=== PATIENT | female | born 1990 | race African-American/Black ===

== ENCOUNTER 2020-09-15 22:57 | Emergency (ER) | payer OTHER, SELFPAY ==
[2020-09-15 23:33] VITALS: BP 142/78; PULSE 108; RESP 18; TEMP 37; O2SAT 100; BMI 33.2
--- NOTE | 2020-09-16 00:05 | ED.ANIMALBIT ---
HPI - Animal Bite General Chief Complaint: Animal Bite Stated Complaint: Dog bite Time Seen by Provider: 09/16/20 00:08 Source: patient Mode of arrival: ambulatory Limitations: no limitations History of Present Illness HPI narrative: No significant past medical history presents with a dog bite to left antecubital space. Patient stated that her dogs were fighting, she did pull them apart and her poodle bit her arm. Dog did receive vaccinations a few years ago, and has no risk for rabies. Patient does not describe any other symptoms, and has full range of motion to the extremity. MD complaint: animal bite Onset (ago): hour(s) (Within the hour of arrival) Animal: dog Description of animal: household pet Mechanism: bite Pain description: dull and burning Severity scale (1-10): 6 Context: animals fighting Treatments prior to arrival: wound dressing(s) Related Data Patient tetanus UTD: No Previous Rx's Medication Instructions Recorded amoxicillin-pot clavulanate 1 tab PO Q12H 10 Days #20 tab 09/16/20 [Augmentin] fluconazole [Diflucan] 150 mg PO Q3D #2 tab 09/16/20 Allergies Allergy/AdvReac Type Severity Reaction Status Date / Time No Known Allergies Allergy Verified 09/16/20 00:04 Review of Systems Review of Systems: Constitutional: No Fever, No Chills ENT/Mouth: No Ear Pain, No Hoarseness, No sore throat Eyes: No Eye Pain, No Swelling, No Redness, No Foreign Body Cardiovascular: No Chest Pain, No SOB Respiratory: No Cough, No Dyspnea Gastrointestinal: No Nausea, No Vomiting, No Diarrhea, No abdominal Pain Genitourinary: No Dysuria, No Hematuria Musculoskeletal: positive left antecubital space pain, No Myalgias, No Joint Swelling Skin: Positive left antecubital lacerations, No rash Neuro: No Weakness, No Numbness, No Paresthesias, No Loss of Consciousness, No Dizziness, No Headache Psych: No Anxiety/Panic, No Depression Heme/Lymph: no easy bruising, no Lymphadenopathy Endocrine: No Polyuria, No Polydipsia Yes all other systems are reviewed and are negative [facility] Past Medical History Attestation statement: The following information was validated with the patient. Source: old records reviewed Social History Social History Alcohol intake: never Smoked in Last 30 Days: No Use of substances other than those prescribed or required for medical reasons: No Any prior treatment program specific to substance use: No Advance Directives: No Advance Directives Information Provided: Yes Physical Exam Vital Signs: Vital Signs: Last Vital Signs Temp 98.6 F 09/15/20 23:33 Pulse 108 H 09/15/20 23:33 Resp 18 09/15/20 23:33 BP 142/78 H 09/15/20 23:33 Pulse Ox 100 09/15/20 23:33 Body Mass Index 33.2 Appearance: Alert. Oriented X3. No acute distress. Eyes: Pupils equal, round and reactive to light. ENT: Pharynx normal. Neck: Normal inspection. Neck supple. CVS: Normal heart rate and rhythm. Pulses normal. Respiratory: No respiratory distress. Breath sounds normal. Abdomen: Soft and nontender. Skin: 3 cm laceration to the left antecubital space with bruising, Skin warm and dry. Normal skin color. Normal skin turgor. Extremities: No lower extremity edema. Strength 5/5, full range of motion, no indication of tendon injury. Neuro: No motor deficit. No sensory deficit. Course Course Course Narrative: 29-year-old female presents with laceration to the left antecubital space secondary to a dog bite. Patient has low risk for rabies, it is her own dog and dog was vaccine in 2017. Prepped and draped in sterile fashion, please refer to procedure note for full details. Laceration repaired with 3 sutures allowing for plenty of space of drainage, wound was gaping with adipose tissue protruding from the site. will give Augmentin for 10 days. Patient verbalized understanding of and agrees to plan of care discharge home. Procedures Laceration Laceration 1: Site: upper extremity Side (If applicable): left Size (cm): 3 Description: linear Depth: simple, single layer Local Anesthetic: with epi Amount of anesthesia used (mL): 10 Pre-repair: wound explored, irrigated extensively and deep structures intact Skin layer closed with: nylon Size (cm): 5-0 Number of sutures: 3 Technique: simple, interrupted MDM - Animal Bite Differential Diagnosis Differential diagnosis: Likely bite by animal Medical Records Attestation: I reviewed the patient's medical records. Discharge Plan Discharge Clinical Impression: Dog bite Qualifiers: Encounter type: initial encounter Qualified Code(s): W54.0XXA - Bitten by dog, initial encounter Patient Disposition: Home, Self-Care Instructions: Animal Bite (ED), Care For Your Stitches (ED), Laceration (ED) Additional Instructions: You were evaluated for a dog bite. Please take Augmentin as directed and complete the entire course. Please return in 10 days to have sutures removed. If you notice signs or symptoms indicating infection which include but are not limited to fevers, chills, purulent drainage from the wound site please return to the emergency department immediately for evaluation. Thank you for choosing this emergency department for evaluation. Please follow-up with primary care physician as needed. Return to the emergency department for any new, concerning, or worsening symptoms. Prescriptions: New amoxicillin-pot clavulanate [Augmentin] 875-125 mg tablet 1 tab PO Q12H 10 Days Qty: 20 RF: 0 fluconazole [Diflucan] 150 mg tablet 150 mg PO Q3D Qty: 2 RF: 0 Stand Alone Forms: Work/School Release Interventions: ED Discharge Assessment Last Done: 09/16/20 02:04 Discharge Date/Time: 09/16/20 01:49
[2020-09-16] MEDS: Amoxicillin/Potassium Clav 875 MG TABLET PO (00:52)
[2020-09-16] MEDS: Lidocaine HCl 2%/Epi 1:100,000 20 ML VIAL INFILTRATI (01:59)
== END 2020-09-16 01:49 | disposition home or self-care (01) ==
PROVIDERS: Emergency Provider Emergency Medicine Emergency Medical Services
DX: S41.112A Laceration without foreign body of left upper arm, initial encounter (principal); W54.0XXA Bitten by dog, initial encounter; Y93.89 Activity, other specified; Y92.017 Garden or yard in single-family (private) house as the place of occurrence of the external cause; Y99.9 Unspecified external cause status
CPT/HCPCS: 12002; 99284

== ENCOUNTER 2020-09-26 05:29 | Emergency (ER) | payer OTHER, SELFPAY ==
[2020-09-26 05:52] VITALS: BP 156/70; PULSE 100; RESP 17; TEMP 36.9; O2SAT 100; BMI 31.4
--- NOTE | 2020-09-26 07:00 | ED.WOUNDLAC ---
HPI - Wound/Laceration General Chief Complaint: Wound/Laceration Stated Complaint: Suture removal Time Seen by Provider: 09/26/20 07:00 Source: patient Mode of arrival: ambulatory Limitations: no limitations History of Present Illness HPI narrative: 29 years old female came in for evaluation of a dog bite laceration to the left forearm. This is a 29-year-old female was bitten by her own dog while trying to break up a dog fight 10 days ago, patient had laceration to the left forearm on the antecubital fossa, patient needed 3 sutures, patient was started on Augmentin, patient despite that still complaining of discomfort and redness around the laceration. No fever or chills. Related Data Previous Rx's Medication Instructions Recorded amoxicillin-pot clavulanate 1 tab PO Q12H 10 Days #20 tab 09/16/20 [Augmentin] fluconazole [Diflucan] 150 mg PO Q3D #2 tab 09/16/20 doxycycline hyclate 100 mg PO BID #14 tab 09/26/20 Allergies Allergy/AdvReac Type Severity Reaction Status Date / Time No Known Allergies Allergy Verified 09/16/20 00:04 Review of Systems Review of Systems: All other systems are reviewed and are negative Constitutional: Reports as per HPI and Reports no additional constitutional complaints Eyes: Reports as per HPI and Reports no additional eye complaints Reports system reviewed and no additional complaints, except as documented Cardiovascular: Reports as per HPI and Reports no additional cardiovascular complaints Respiratory: Reports as per HPI and Reports no additional respiratory complaints Gastrointestinal: Reports as per HPI and Reports no additional gastrointestinal complaints Genitourinary: Reports no additional female genitourinary complaints Musculoskeletal: Reports no additional musculoskeletal complaints Skin/Breast: Reports system reviewed and no additional complaints, except as docu Psychiatric: Reports no additional psychiatric complaints Endocrine: Reports no additional endocrine complaints Hematologic/Lymphatic: Reports no additional hematologic/lymphatic complaints Allergic/Immunologic: Reports no additional allergic/immunologic complaints Reports system reviewed and no additional complaints, except as documented and Reports Abnormal speech present ON LICENSE OF [facility] Social History Social History Alcohol intake: never Advance Directives: No Advance Directives Information Provided: No Physical Exam Vital Signs: Vital Signs: Last Vital Signs Temp 98.4 F 09/26/20 05:52 Pulse 100 09/26/20 05:52 Resp 17 09/26/20 05:52 BP 156/70 H 09/26/20 05:52 Pulse Ox 100 09/26/20 05:52 Body Mass Index 31.4 Vital signs have been reviewed as appeared to be correct. Blood pressure elevated. Heart rate normal. Respiration rate normal. Temperature normal. Oxygen saturation normal. Appearance: Alert. Oriented X3. No acute distress. Head: Normal external exam. Eyes: PERRLA. EOMI. Conjunctiva and sclera normal. Eyelids normal. . Neck: Normal inspection. CVS: Normal heart rate and rhythm. Respiratory: No respiratory distress. nontender. No accessory muscle usage noted or decreased air movement noted. Abdomen: Soft and nontender. Bowel sounds normal in all 4 quadrants. No distention noted. No organomegaly noted. No visible injury noted. Skin: Skin warm and dry. Normal skin color. Normal skin turgor. No rashes/lesions/lacerations noted. Extremities: Left forearm exam, 4 cm irregular laceration, 3 sutures are intact,. There is erythema and redness around the cut with tenderness, no fluctuating abscess is appreciated. Neuro: Oriented X 3. No motor deficit. No sensory deficit. Reflexes normal. Course Course Course Narrative: 29-year-old female just finished 10 days course of Augmentin after a dog bite laceration, 3 sutures were removed from the incision side, cellulitis was noted at the laceration side but no abscess formation. Patient to continue cleaning the wound, will start another course of doxycycline, and patient was instructed to return in 48 hours to reassess the wound. Discharge Plan Discharge Clinical Impression: Infected wound, Encounter for removal of sutures Patient Disposition: Home, Self-Care Instructions: Wound Infection (ED) Additional Instructions: Return to the emergency department in 48-72 hours for wound check. Prescriptions: New doxycycline hyclate 100 mg tablet 100 mg PO BID Qty: 14 RF: 0 No Action amoxicillin-pot clavulanate [Augmentin] 875-125 mg tablet 1 tab PO Q12H 10 Days Qty: 20 RF: 0 fluconazole [Diflucan] 150 mg tablet 150 mg PO Q3D Qty: 2 RF: 0 Referrals: Physician,Nonstaff [Primary Care Provider] - 2 days (Or return back to the emergency department in 48-72 hours for wound check.)
== END 2020-09-26 07:28 | disposition home or self-care (01) ==
PROVIDERS: Emergency Provider Emergency Medicine
DX: Z48.02 Encounter for removal of sutures (principal); L03.114 Cellulitis of left upper limb; S51.812D Laceration without foreign body of left forearm, subsequent encounter; W54.0XXD Bitten by dog, subsequent encounter
CPT/HCPCS: 99283; 99284

== ENCOUNTER 2020-09-30 02:25 | Emergency (ER) | payer OTHER, SELFPAY ==
[2020-09-30 02:35] VITALS: BP 146/82; PULSE 86; RESP 18; TEMP 35.8; O2SAT 99; BMI 32.7
--- NOTE | 2020-09-30 02:59 | ED.WOUNDLAC ---
HPI - Wound/Laceration General Chief Complaint: Wound/Laceration Stated Complaint: Wound check Time Seen by Provider: 09/30/20 02:57 Source: patient Mode of arrival: ambulatory History of Present Illness HPI narrative: 29-year-old female who presents for re-evaluation of left antecubital dog bite for which she has been taking antibiotics. Patient denies any fevers or chills and states that the area looks much better than it did previously. Related Data Previous Rx's Medication Instructions Recorded amoxicillin-pot clavulanate 1 tab PO Q12H 10 Days #20 tab 09/16/20 [Augmentin] fluconazole [Diflucan] 150 mg PO Q3D #2 tab 09/16/20 doxycycline hyclate 100 mg PO BID #14 tab 09/26/20 doxycycline hyclate 100 mg PO BID #14 tab 09/26/20 Allergies Allergy/AdvReac Type Severity Reaction Status Date / Time No Known Allergies Allergy Verified 09/16/20 00:04 Review of Systems Review of Systems: Pertinent positives and negatives as stated in HPI 10 point review of systems is otherwise negative. COUNTS INCLUDE 234 BEDS AT THE [facility] Past Medical History Source: nursing notes reviewed Social History Social History Alcohol intake: never Advance Directives: No Patient : No Physical Exam Vital Signs: Vital Signs: Last Vital Signs Temp 96.4 F L 09/30/20 02:35 Pulse 86 09/30/20 02:35 Resp 18 09/30/20 02:35 BP 146/82 H 09/30/20 02:35 Pulse Ox 99 09/30/20 02:35 Body Mass Index 32.7 VITAL SIGNS: Reviewed. GENERAL: Well developed, well nourished, in no acute distress. HEAD: Normocephalic/atraumatical OROPHARYNX: no oral lesions noted, posterior pharynx clear NECK: Supple, no adenopathy LUNGS: Normal breath sounds. No adventitious sounds or accessory muscle use. SpO2<99> CARDIOVASCULAR: Regular rate and rhythm without noted murmurs ABDOMEN: Soft, non-tender, non-distended with bowel sounds. LEFT UPPER EXTREMITY: No erythema or edema noted at the left antecubital on palpation there is no pain and able to appreciate the well healing dog bite. On comparison with photos patient has on her phone, a site is significantly improved from prior visit NEUROLOGIC: Alert and oriented x 4. Course Course Course Narrative: 29-year-old female with history and clinical presentation of dog bite with well-healing wound and no evidence of infection at this time, however patient is on antibiotics and she was encouraged to complete the entire course. Patient was discharged in stable condition. Discharge Plan Discharge Clinical Impression: Encounter for wound re-check Patient Disposition: Home, Self-Care Instructions: Wound Healing and Your Diet (ED) Additional Instructions: 1. Fully complete the course of antibiotics that you have been provided. 2. May continue to cleanse area with soap and water. Do not hesitate to return to the emergency department should you experience any acute worsening of your symptoms. Prescriptions: No Action amoxicillin-pot clavulanate [Augmentin] 875-125 mg tablet 1 tab PO Q12H 10 Days Qty: 20 RF: 0 fluconazole [Diflucan] 150 mg tablet 150 mg PO Q3D Qty: 2 RF: 0 doxycycline hyclate 100 mg tablet 100 mg PO BID Qty: 14 RF: 0 doxycycline hyclate 100 mg tablet 100 mg PO BID Qty: 14 RF: 0 Referrals: Physician,Unknown [Primary Care Provider] - 2 days Interventions: ED Discharge Assessment Last Done: 09/30/20 03:20 Discharge Date/Time: 09/30/20 03:21
== END 2020-09-30 03:21 | disposition home or self-care (01) ==
PROVIDERS: Emergency Provider Student in an Organized Health Care Education/Training Program
DX: Z48.00 Encounter for change or removal of nonsurgical wound dressing (principal); S41.152D Open bite of left upper arm, subsequent encounter; W54.0XXD Bitten by dog, subsequent encounter
CPT/HCPCS: 99282; 99283